=== PATIENT | female | born 1970 | race Two or more races ===

== ENCOUNTER 2017-08-05 20:10 | Emergency (ER) | payer SELFPAY ==
[~2017-08-05] VITALS: Ht 162.6 cm; Wt 72.6 kg
[2017-08-05] MEDS ORDERED: ONDANSETRON HCL 4 MG/2 ML VIAL IV ONE (22:00)
[2017-08-05] MEDS ORDERED: MORPHINE SULF INJ 2 MG/ML SYRINGE 1ML IV ONE (22:00)
[2017-08-05 22:06] LABS: Basophils # (auto) 0.1 uL; Basophils % (auto) 0.9 % (0.0-2.0); Eosinophils # (auto) 0.2 uL; Eosinophils % (auto) 1.7 % (0.0-7.0); Hematocrit 38.2 % (36.0-46.0); Hemoglobin 12.9 g/dL (12.2-16.2); Lymphocytes # (auto) 1.4 uL; Lymphocytes % (auto) 11.4 % (10.0-50.0); Mean Corpuscular Hemoglobin 30.3 pg (28.0-32.0); Mean Corpuscular Hgb Conc. 33.8 g/dL (32.0-36.0); Mean Corpuscular Volume 89.6 fL (80.0-100.0); Mean Platelet Volume 8.5 fL (6.9-10.8); Monocytes # (auto) 0.7 uL; Monocytes % (auto) 5.9 % (0.0-12.0); Neutrophils # (auto) 9.9 uL; Neutrophils % (auto) 80.1 % (37.0-80.0); Platelet Count (auto) 278 10^3/uL (140-450); White Blood Cell 12.4 10^3/uL (4.4-10.8)
[2017-08-05 22:23] LABS: Albumin 3.4 g/dL (3.4-5.0); BUN/Creatinine Ratio 19.2; Calcium 8.7 mg/dL (8.5-10.1)
[2017-08-05 22:26] LABS: Bilirubin, Total 0.2 mg/dL (0.2-1.0); Total Protein 7.3 g/dL (6.4-8.2)
[2017-08-05 23:00] VITALS: BP 124/73
== END 2017-08-06 00:45 | disposition home or self-care (01) ==
LOC: ER 20:10 → EDBD 20:10 → ER 08-06 00:45
DX: S16.1XXA Strain of muscle, fascia and tendon at neck level, initial encounter (principal); S39.012A Strain of muscle, fascia and tendon of lower back, initial encounter; S80.02XA Contusion of left knee, initial encounter; V49.49XA Driver injured in collision with other motor vehicles in traffic accident, initial encounter; Y93.89 Activity, other specified; Y99.8 Other external cause status; Y92.410 Unspecified street and highway as the place of occurrence of the external cause
CPT/HCPCS: 36415; 70450; 72125; 72131; 73590; 80053; 85025; 96374; 96375; 99285; J2270; J2405